=== PATIENT | male | born 1990 | race American Indian/Alaskan Native ===

== ENCOUNTER 2020-12-22 08:28 | Emergency (ER) | payer OTHER, SELFPAY ==
[2020-12-22] MEDS ORDERED: WATER FOR INJ Sterile (PF) 10 ML ONE (08:40)
[2020-12-22] MEDS ORDERED: ZIPRASIDONE MESYLATE 20 MG VIAL IM ONE ×2 (08:40→08:44)
[2020-12-22] MEDS ORDERED: MAGNESIUM HYDROXIDE (MOM) ORAL LIQD UDC PO PRN (08:45)
[2020-12-22] MEDS ORDERED: ACETAMINOPHEN 325 MG TAB PO PRN (08:45)
[2020-12-22] MEDS ORDERED: ALUM-MAG HYDROXIDE-SIMETHICONE 200-200-20MG/5ML ORAL LIQD 30 ML PO PRN (08:45)
--- NOTE | 2020-12-22 09:16 | Emergency Department Report ---
ED Psych HPI - General Chief Complaint: Psych Stated Complaint: SUICIDAL IDEATIONS Time Seen by Provider: 12/22/20 08:44 Source: patient, EMS Mode of arrival: Ambulatory - History of Present Illness Initial Comments: Chief complaint: "I have been through all of that. I am not dressing out." HPI: This is a 30 yo male with hx of HTN, PTSD, methamphetamine abuse who presents with delusional violent behavior. Family members called mobile crisis unit for abnormal behavior. Patient came to sister's home. He appears to have auditory hallucinations. He threatened to kill or harm someone. He stated that the house is going to be blown up. He denies suicidal ideation. He states, "I am just going through something spiritual." OIL AND GAS SPECIALIST on scene signed 1013. EMS transported patient to the ED. Patient desires to leave. "I'm not going through all that. I am not dressing out. I've been to the crisis center before. You can give me some Ativan. Will you give me some Ativan?" He denies any physial complaint. MD Complaint: altered mental status -: This morning Associated Psychiatric Symptoms: homicidal ideation, racing thoughts, auditory hallucinations History of same: Yes Quality: constant Improves With: none Worsens With: none Context: not taking psychiatric, other Associated Symptoms: denies other symptoms (History of methamphetamine abuse) Treatments Prior to Arrival: placed on mental he - Related Data Previous Rx's Medication Instructions Recorded Last Taken Type busPIRone [Buspar] 5 mg PO BID #60 tab 12/23/20 Unknown Rx risperiDONE [RisperDAL] 0.5 mg PO BID #60 tablet 12/23/20 Unknown Rx Allergies Allergy/AdvReac Type Severity Reaction Status Date / Time No Known Allergies Allergy Unverified 12/22/20 11:27 ED Review of Systems ROS: Stated complaint: SUICIDAL IDEATIONS Other details as noted in HPI Comment: All other systems reviewed and negative Constitutional: denies: fever Respiratory: denies: cough, shortness of breath Cardiovascular: denies: chest pain Gastrointestinal: denies: nausea, vomiting ED Past Medical Hx - Past Medical History Previous Medical History?: Yes Hx Hypertension: Yes Hx Psychiatric Treatment: Yes (PTSD) - Social History Smoking Status: Current Every Day Smoker Substance Use Type: Methamphetamines - Medications Home Medications: Home Medications Medication Instructions Recorded Confirmed Last Taken Type busPIRone [Buspar] 5 mg PO BID #60 tab 12/23/20 Unknown Rx risperiDONE [RisperDAL] 0.5 mg PO BID #60 tablet 12/23/20 Unknown Rx ED Physical Exam - General Limitations: No Limitations General appearance: alert, other (Restless agitated holding onto the telephone) - Head Head exam: Present: atraumatic, normocephalic - Eye Eye exam: Present: normal appearance - ENT ENT exam: Present: mucous membranes moist - Neck Neck exam: Present: normal inspection, full ROM - Respiratory Respiratory exam: Absent: respiratory distress - GI/Abdominal GI/Abdominal exam: Present: soft. Absent: distended - Rectal Rectal exam: Present: deferred - Extremities Exam Extremities exam: Present: normal inspection - Neurological Exam Neurological exam: Present: alert, oriented X3 - Psychiatric Psychiatric exam: Present: agitated, other (Circular pressured speech, delusional) - Skin Skin exam: Present: warm, dry, intact, normal color. Absent: rash ED Course Vital Signs 12/22/20 12/22/20 12/22/20 11:27 20:25 21:18 Temperature 97.3 F L 97.3 F L Pulse Rate 104 H 95 H Respiratory 18 18 20 Rate Blood Pressure 113/86 121/67 [Left] O2 Sat by Pulse 99 98 Oximetry 12/23/20 08:15 Temperature 97.6 F Pulse Rate 82 Respiratory 18 Rate Blood Pressure 169/89 [Left] O2 Sat by Pulse 98 Oximetry ED Medical Decision Making - Lab Data Result diagrams: 12/22/20 11:26 12/22/20 11:26 - Medical Decision Making Ms. Foster is a 30-year-old male with history of hypertension, PTSD and methamphetamine abuse who presents with acute psychosis and homicidal ideation. He is medically clear for psychiatric care. He required chemical restraint with IM ziprasidone immediately upon arrival. Patient would not cooperate. Patient is currently in seclusion. Clinical impression: Drug-induced psychosis with homicidal ideation. Awaiting treatment recommendations from mental health team once patient is awake Critical care attestation.: If time is entered above; I have spent that time in minutes in the direct care of this critically ill patient, excluding procedure time. ED Disposition Clinical Impression: Acute psychosis, Homicidal ideation, PTSD (post-traumatic stress disorder), Methamphetamine abuse Disposition: - TO HOME OR SELFCARE Is pt being admited?: No Does the pt Need Aspirin: No Condition: Fair Instructions: Stimulant Use Disorder-Cocaine, Methamphetamines Use Disorder Prescriptions: busPIRone [Buspar] 5 mg PO BID #60 tab risperiDONE [RisperDAL] 0.5 mg PO BID #60 tablet Referrals: PRIMARY CARE, [Primary Care Provider] - 3-5 Days
--- NOTE | 2020-12-22 11:20 | Consultation ---
History of Present Illness - Reason for Consult Consult date: 12/22/20 Reason for consult: Violent behavior - History of Present Psychiatric Illness Per ER Note: HPI: This is a 30 yo male with hx of HTN, PTSD, methamphetamine abuse who presents with delusional violent behavior. Family members called mobile crisis unit for abnormal behavior. Patient came to sister's home. He appears to have auditory hallucinations. He threatened to kill or harm someone. He stated that the house is going to be blown up. He denies suicidal ideation. He states, "I am just going through something spiritual." FUNERAL GREETER on scene signed 1013. EMS transported patient to the ED. Patient desires to leave. "I'm not going through all that. I am not dressing out. I've been to the crisis center before. You can give me some Ativan. Will you give me some Ativan?" He denies any physial complaint. Bhargav Foster is a 30y/o male patient I attempted to evaluate today. He is somnolent and does not engage in the interview. The nurse states the patient was given Geodon. PAST PSYCHIATRIC HISTORY: Unable to assess PAST MEDICAL HISTORY: None reported or document Family Psychiatric History: None reported or documented SOCIAL HISTORY Unable to assess REVIEW OF SYSTEMS Unable to assess MENTAL STATUS EXAMINATION Unable to assess Diagnoses: Methamphetamine dependence with Substance Induced Mood Disorder Treatment Plan 1013 Geodon 20mg IM q6h prn agitation Sitter: Per medical Medical: Per primary Disposition: Recommend acute psychiatric inpatient treatment Will follow Case staffed with Dr. Fitzpatrick Medications and Allergies Active Meds: Active Medications Acetaminophen (Acetaminophen 325 Mg Tab) 650 mg PO Q4HR PRN PRN Reason: Pain MILD(1-3)/Fever >100.5/HERNANDEZ Al Hydrox/Mg Hydrox/Simethicone (Alum-Mag Hydroxide-Simethicone [phone]/5ml Oral Liqd 30 Ml) 30 ml PO Q4HR PRN PRN Reason: Indigestion Magnesium Hydroxide (Magnesium Hydroxide (Mom) Oral Liqd Udc) 30 ml PO Q12HR PRN PRN Reason: Constipation Ziprasidone (Ziprasidone Mesylate 20 Mg Vial) 20 mg IM ONCE ONE Stop: 12/22/20 08:45 Last Admin: 12/22/20 09:20 Dose: 20 mg Documented by: Results All other labs normal.
[2020-12-22] MEDS ORDERED: ZIPRASIDONE MESYLATE 20 MG VIAL IM PRN (11:25)
[2020-12-22 11:43] LABS: Basophils # (Auto) 0.1 K/mm3 (0.0-0.1); Basophils % (Auto) 0.8 % (0.0-1.8); Eosinophils % (Auto) 0.6 % (0.0-4.3); Hematocrit 37.3 % (35.5-45.6); Hemoglobin 12.8 gm/dl (11.8-15.2); Lymphocytes # (Auto) 2.5 K/mm3 (1.2-5.4); Lymphocytes % (Auto) 35.2 % (13.4-35.0); Mean Corpuscular HGB Conc 34 % (32-34); Mean Corpuscular Volume 88 fl (84-94); Monocytes # (Auto) 0.6 K/mm3 (0.0-0.8); Monocytes % (Auto) 8.3 % (0.0-7.3); Platelet Count 260 K/mm3 (140-440); Red Blood Count 4.26 M/mm3 (3.65-5.03); Red Cell Distribution Width 13.6 % (13.2-15.2)
[2020-12-22 11:48] LABS: Bilirubin,Urine NEG (Negative); Blood,Urine NEG (Negative); Color,Urine Colorless (Yellow); Protein,Urine <15 mg/dL mg/dL (Negative); RBC,Urine < 1.0 /HPF (0.0-6.0); Urobilinogen,Urine < 2.0 mg/dL (<2.0); WBC,Urine < 1.0 /HPF (0.0-6.0)
[2020-12-22 11:56] LABS: Benzodiazepines Screen,Urine Negative; Cannabinoid Screen,Urine Negative; Cocaine Screen,Urine Negative; Methadone Screen,Urine Negative; Opiate Screen,Urine Negative
[2020-12-22 11:58] LABS: BUN/Creatinine Ratio 14; Blood Urea Nitrogen 14 mg/dL (9-20); Calcium 9.5 mg/dL (8.4-10.2); Hemolysis Index 3
[2020-12-22 12:35] LABS: Amphetamine Screen,Urine PRESUMPTIVE POSITIVE
[2020-12-23 10:04] VITALS: BP 169/89
--- NOTE | 2020-12-23 10:48 | Progress Note ---
Subjective - Reason for Consult Consult date: 12/23/20 Reason for consult: agitation - Chief Complaint Chief complaint: The patient was seen today. He is calm, cooperative, pleasant and polite. He says he "was tripping because of some drugs he tried." The patient says "I usually don't do stuff like that." He denies SI/HI or hallucinations of any kind. He is smiling, and states "this made me realize what I need to do with my life." The patient says, "I'm working on a clothing line." He says he has PTSD and was on riperidone and xanax. He is asking me for xanax. Advised the patient I would not do xanax but would give him something else for anxiety. The patient also requested resources for outpatient. Informed him that I would give him everything he needed to maintain his mental health on an outpatient basis. He was in agreement and verbalized understanding. REVIEW OF SYSTEMS Constitutional: Negative for weight loss ENT: Negative for stridor Respiratory: Negative for cough or hemoptysis All other systems reviewed and are negative MENTAL STATUS EXAMINATION General Appearance and Behavior: Age appropriate, wearing appropriate clothes, cooperative, polite with questioning, wear shades, irritable Cooperation: cooperative Psychomotor Behavior: Psychomotor normal Mood: better Affect and affective range: congruent with stated mood Thought Process: goal directed Thought Content: SI, depression Speech: Normal volume, Regular rate and rhythm Suicidal Ideation: SI Homicidal Ideation: Denies Hallucination: Denies Delusions: None elicited Impulse Control: Intact Insight and Judgment: Limited Memory: Intact Attention: attentive Orientation: Alert and oriented Diagnoses: Methamphetamine dependence with Substance Induced Mood Disorder Hx of PTSD and JOB Treatment Plan D/c 1013 Risperidoen 0.5mg po BID Buspar 5mg po BID Sitter: Per medical Medical: Per primary Disposition: Do not recommend acute psychiatric inpatient treatment. The patient understands that if any SI/HI or any fear of endangerment arise he is to seek immediate assistance. Headwaiter/Headwaitress to give the patient resources for outpatient med management, CBT, drug rehab and med assistance Will sign off Case staffed with Dr. Fitzpatrick Mental Status Exam - Vital signs Last Vital Signs Temp 97.6 F 12/23/20 08:15 Pulse 82 12/23/20 08:15 Resp 18 12/23/20 08:15 BP 169/89 12/23/20 08:15 Pulse Ox 98 12/23/20 08:15
[2020-12-23] MEDS ORDERED: ACETAMINOPHEN 500 MG TAB PO ONE (11:54)
[2020-12-23] MEDS ORDERED: PENICILLIN V POTASSIUM 250 MG TAB PO ONE (12:30)
[2020-12-23] MEDS ORDERED: PENICILLIN G BENZATHINE 1.2 MILLION UNIT/2 ML INJ IM ONE (12:53)
== END 2020-12-23 14:00 | disposition home or self-care (01) ==
LOC: ED 08:28 → EEVIPCON 08:28 → ED 12-23 14:00
DX: F23 Brief psychotic disorder (principal); R45.850 Homicidal ideations; Z20.822 Contact with and (suspected) exposure to COVID-19; F43.10 Post-traumatic stress disorder, unspecified; F15.10 Other stimulant abuse, uncomplicated; I10 Essential (primary) hypertension; F17.200 Nicotine dependence, unspecified, uncomplicated; Z79.899 Other long term (current) drug therapy
CPT/HCPCS: 36415; 80048; 80307; 81001; 85025; 96372; 99285; J0561; J3486; U0003; 80320; G0480